=== PATIENT | female | born 1990 | race Caucasian/White ===

== ENCOUNTER 2019-08-23 19:01 | Emergency (ER) | payer MEDICARE, MEDICAID ==
[~2019-08-23] VITALS: Ht 170.2 cm; Wt 113.6 kg
[2019-08-23] MEDS ORDERED: TRILEPTAL600 MG PO (20:05)
[2019-08-23] MEDS ORDERED: LATUDA80 MG PO (20:06)
[2019-08-23] MEDS ORDERED: ZOLOFT 100MG100 MG PO (20:06)
[2019-08-23] MEDS ORDERED: STOOL SOFTENER100 M2 PO (20:06)
[2019-08-23] MEDS ORDERED: MULTIPLE VITAMI1 TA5 PO (20:06)
[2019-08-23] MEDS ORDERED: VITAMIN D32000 IU (20:06)
[2019-08-23] MEDS ORDERED: MASON NATURAL1200 MG PO (20:07)
[2019-08-23 20:13] LABS: COLLECTION METHOD CLEAN CATCH
[2019-08-23 20:16] LABS: BASO % 0.3 % (0.0-2.0); EOS # 0.1 (0.0-0.7); EOS % 0.7 % (0-4.0); GRAN # 6.2 (1.4-6.5); GRAN % 61.2 % (42.2-75.2); HEMATOCRIT 46.3 % (37.0-47.0); LYMPH % 30.2 % (20.0-51.0); MEAN CELL VOLUME 87 fl (80.0-100.0); MEAN CORPUSCULAR HEMOGLOBIN 28 pg (27.0-31.0); MEAN CORPUSCULAR HGB CONC 32 g/dl (33.0-37.0); MEAN PLATELET VOLUME 10.3 fl (7.4-10.4); MONO # 0.7 (0.1-0.6); MONO % 7.3 % (1.7-9.3); PLATELET COUNT 251 K/mm3 (130-400); RED BLOOD COUNT 5.35 M/mm3 (4.10-5.30); REDCELL DISTRIBUTION WIDTH-CV 12.5 % (11.5-14.5)
[2019-08-23 20:30] LABS: ALBUMIN 4.4 gm/dL (3.5-5.0); BILIRUBIN,TOTAL 0.4 mg/dL (0.0-1.0); CALCIUM 9.7 mg/dL (8.4-10.2); CREATININE, serum 0.58 (0.52-1.25); POTASSIUM 3.9 mmol/L (3.4-5.0); TOTAL PROTEIN 8.6 gm/dL (6.4-8.2)
[2019-08-23 20:36] LABS: MUCOUS Present /lpf; PH 6 (5-8); URINE APPEARANCE Hazy; URINE BACTERIA Occasional /hpf; URINE BILIRUBIN Negative (NEGATIVE); URINE BLOOD Negative (NEGATIVE); URINE COLOR Yellow; URINE GLUCOSE Negative (NEGATIVE); URINE KETONE Negative (NEGATIVE); URINE LEUKOCYTE ESTERASE Negative (NEGATIVE); URINE NITRATE Negative (NEGATIVE); URINE PROTEIN(semi-quant) Negative (NEGATIVE); URINE RBC 0-2 /hpf; URINE UROBILINOGEN >=4.0 mg/dL (NEGATIVE)
[2019-08-23 22:48] VITALS: BP 113/7; PULSE 75; TEMP 98.7
== END 2019-08-23 22:48 | disposition home or self-care (01) ==
LOC: COL.ER 19:01
PROVIDERS: Emergency Medicine
DX: R10.30 Lower abdominal pain, unspecified (principal)
CPT/HCPCS: J1170; J1885; J2550; Q9967